=== PATIENT | female | born 1960 | race Caucasian/White ===

== ENCOUNTER 2016-10-25 10:52 | Observation (INO) | payer OTHER ==
[~2016-10-25] VITALS: Ht 154.9 cm; Wt 103.1 kg
[~2016-10-25 10:52] MED LIST: ATEN50TA8 PO; CMD5 PO; FRS/40 PO; SIMV40TA2 PO; TRAZ50TA35 PO; VENL150T33 PO; VENL75CA73 PO
[2016-10-25] MEDS ORDERED: SODIUM CHLORIDE 0.9% 500ML 500 ML IV STA (11:16)
--- NOTE | 2016-10-25 11:22 | EMERGENCY ROOM VISIT NOTE ---
History Report prepared by Tani: Helga Garcia Under the Supervision of: Dr. Walter Gilliland D.O. First contact with patient: 11:08 Chief Complaint: CHEST PAIN Stated Complaint: CHEST PAIN History of Present Illness The patient is a 55 year old female who presents to the Emergency Room with complaints of resolved chest pain that began four hours ago. She currently rates her discomfort as a 1/10 in severity. The patient states that around 0715 she woke up with chest heaviness and pressure. She states that she tried lying in bed for 15-20 minutes, but states that the pressure persisted. The patient states that she got up and did her normal morning routine, but the pain persisted and then began to worsen. She states that she started noticing the pain in her jaw. The patient additionally associates shortness of breath and dizziness. She reports a history of a cardiac ablation, but denies any cardiac catheterization. The patient denies any increased strenuous activity. She states that she received nitroglycerin en-route to the emergency department which alleviated her pain, but notes that she developed a headache. The patient states that she took 324 mg of aspirin prior to arrival and additionally was given 50 mcg of Fentanyl. The patient reports a history of atrial fibrillation. Source of History: patient Onset: four hours ago Position: chest Symptom Intensity: 1/10 Quality: pressure, other (heaviness) Timing: resolved Modifying Factors (Relieving): other (nitroglycerin) Associated Symptoms: + SOB Note: Associated Symptoms: dizziness Review of Systems See HPI for pertinent positives & negatives. A total of 10 systems reviewed and were otherwise negative. Past Medical & Surgical Medical Problems: (1) Atrial fibrillation (2) Chest pain (3) Chronic anticoagulation (4) Depression (5) DM type 2 (diabetes mellitus, type 2) (6) Dysmetabolic syndrome X (7) Hyperlipidemia (8) Obesity, morbid, BMI 40.0-49.9 (9) Osteoarthritis (10) Restless legs syndrome (RLS) (11) TIA (transient ischemic attack) (12) Tobacco abuse Surgical Problems: (1) H/O colonoscopy with polypectomy (2) History of hysterectomy (3) S/p ablation of SVT (4) S/P total knee arthroplasty Social History Smoking Status: Former Smoker Current/Historical Medications Scheduled Atenolol (Tenormin), 50 MG PO DAILY Bupropion Hcl (Bupropion Hcl Er), 150 MG PO BID Cholecalciferol (Vitamin D3), 1,000 INTER.UNIT PO DAILY Digoxin (Digoxin), 0.125 MG PO QAM Metformin Hcl (Glucophage), 500 MG PO BIDM Simvastatin (Zocor), 40 MG PO HS Warfarin Sod (Coumadin), 5 MG PO DAILY UD Warfarin Sod (Jantoven), 2.5 MG PO 2XWK Scheduled PRN Furosemide (Lasix), 40 MG PO DAILY PRN for FLUID ACCUMULATION Allergies Coded Allergies: Cephalexin (Verified Allergy, Unknown, "CAN'T REMEMBER WHAT HAPPENED" ( RASH PER PATRICIA H&P), 10/25/16) RASH AND POSSIBLE LIP SWELLING Physical Exam Vital Signs Date Time Temp Pulse Resp B/P (MAP) Pulse Ox O2 Delivery O2 Flow Rate FiO2 10/25/16 11:38 75 20 115/63 94 Room Air 10/25/16 11:08 71 10/25/16 10:55 96 Room Air 10/25/16 10:55 36.7 68 20 115/72 97 Room Air 10/25/16 10:55 96 Room Air Physical Exam GENERAL: Patient is awake, alert, mildly anxious appearing, but comfortable. EYES: The conjunctivae are clear. The pupils are round and reactive. EARS, NOSE, MOUTH AND THROAT: The nose is without any evidence of any deformity. Mucous membranes are moist tongue is midline NECK: The neck is nontender and supple. RESPIRATORY: Normal respiratory effort is noted there is no evidence of wheezing rhonchi or rales CARDIOVASCULAR: Irregular rhythm noted to auscultation, but no definite murmur. GASTROINTESTINAL: The abdomen is soft. Bowel sounds are present in all quadrants. Abdomen is nontender MUSCULOSKELETAL/EXTREMITIES: There is no evidence of gross deformity full range of motion is noted in the hips and shoulders SKIN: There is no obvious evidence of any rash. There are no petechiae, pallor or cyanosis noted. NEUROLOGIC: Patient is awake alert and oriented x3. Medical Decision & Procedures ER Provider Diagnostic Interpretation: X-ray results as stated below per interpretation by me and the radiologist. CHEST ONE VIEW PORTABLE CLINICAL HISTORY: CHEST PAIN dyspnea COMPARISON STUDY: No previous studies for comparison. FINDINGS: The bones soft tissues and hemidiaphragms are normal. The cardiomediastinal silhouette is normal. The lungs are clear. The pulmonary vasculature is normal. IMPRESSION: Negative chest. Electronically signed by: Bull Vides M.D. 10/25/2016 11:37 AM Dictated Date/Time: 10/25/2016 11:37 AM Laboratory Results 10/25/16 11:15 Red Blood Count 4.76, Mean Corpuscular Volume 89.7, Mean Corpuscular Hemoglobin 28.2, Mean Corpuscular Hemoglobin Concent 31.4, Mean Platelet Volume 9.7, Neutrophils (%) (Auto) 75.9, Lymphocytes (%) (Auto) 16.9, Monocytes (%) (Auto) 5.5, Eosinophils (%) (Auto) 0.8, Basophils (%) (Auto) 0.5, Neutrophils # (Auto) 8.39, Lymphocytes # (Auto) 1.87, Monocytes # (Auto) 0.61, Eosinophils # (Auto) 0.09, Basophils # (Auto) 0.05 10/25/16 11:15 Test 10/25/16 11:15 White Blood Count 11.05 K/uL (4.8-10.8) Red Blood Count 4.76 M/uL (4.2-5.4) Hemoglobin 13.4 g/dL (12.0-16.0) Hematocrit 42.7 % (37-47) Mean Corpuscular Volume 89.7 fL (80-100) Mean Corpuscular Hemoglobin 28.2 pg (25-34) Mean Corpuscular Hemoglobin Concent 31.4 g/dl (32-36) Platelet Count 252 K/uL (130-400) Mean Platelet Volume 9.7 fL (7.4-10.4) Neutrophils (%) (Auto) 75.9 % Lymphocytes (%) (Auto) 16.9 % Monocytes (%) (Auto) 5.5 % Eosinophils (%) (Auto) 0.8 % Basophils (%) (Auto) 0.5 % Neutrophils # (Auto) 8.39 K/uL (1.4-6.5) Lymphocytes # (Auto) 1.87 K/uL (1.2-3.4) Monocytes # (Auto) 0.61 K/uL (0.11-0.59) Eosinophils # (Auto) 0.09 K/uL (0-0.5) Basophils # (Auto) 0.05 K/uL (0-0.2) RDW Standard Deviation 49.8 fL (36.4-46.3) RDW Coefficient of Variation 15.4 % (11.5-14.5) Immature Granulocyte % (Auto) 0.4 % Immature Granulocyte # (Auto) 0.04 K/uL (0.00-0.02) Prothrombin Time 20.2 SECONDS (9.0-12.0) Prothromb Time International Ratio 1.8 (0.9-1.1) Activated Partial Thromboplast Time 35.2 SECONDS (21.0-31.0) Partial Thromboplastin Ratio 1.4 Anion Gap 12.0 mmol/L (3-11) Est Creatinine Clear Calc Drug Dose 101.0 ml/min Estimated GFR () 112.8 Estimated GFR (Non- 97.3 BUN/Creatinine Ratio 11.6 (10-20) Calcium Level 8.8 mg/dl (8.5-10.1) Total Bilirubin 0.4 mg/dl (0.2-1) Direct Bilirubin 0.1 mg/dl (0-0.2) Aspartate Amino Transf (AST/SGOT) 35 U/L (15-37) Alanine Aminotransferase (ALT/SGPT) 45 U/L (12-78) Alkaline Phosphatase 66 U/L (45-117) Total Creatine Kinase 60 U/L (26-192) Creatine Kinase MB < 0.5 ng/ml (0.5-3.6) Creatine Kinase MB Ratio (0-3.0) Troponin I < 0.015 ng/ml (0-0.045) Total Protein 7.0 gm/dl (6.4-8.2) Albumin 3.0 gm/dl (3.4-5.0) Lipase 248 U/L (73-393) Digoxin Level 0.8 ng/ml (0.8-2.0) Hepatitis C Antibody Screen NEG (NEG) Laboratory results per my review. Medications Administered Medications (Trade) Dose Ordered Sig/Dean Route Start Time Stop Time Status Last Admin Dose Admin Sodium Chloride 500 ml @ 999 mls/hr Q31M STAT IV 10/25/16 11:16 10/25/16 11:46 DC 10/25/16 11:20 999 MLS/HR ECG Rate (beats per minute): 74 Rhythm: atrial fibrillation Findings: other (no PVCs, no acute ST segment abnormalities) Comparison ECG Date: 10/09/13 Change: EKG change: When compared to EKG done on 10/09/13, decreased rate is noted, but no other specific change. ED Course 1108: The patient was evaluated in room C7. A complete history and physical examination were performed. 1116: Ordered Sodium Chloride 500 ml @ 999 mls/hr IV. 1203: I reevaluated the patient and she is resting comfortably. I discussed the exam findings with her and I discussed the treatment plan. She verbalized complete understanding and agreement. She is going to be evaluated for further treatment. 1207: I discussed the patients case with Kathy Sheehan. He is going to evaluate the patient for further treatment. Medical Decision Differential diagnosis: Etiologies such as cardiac ischemia, aortic dissection, pulmonary embolism, pneumonia, pneumothorax, musculoskeletal, infections, pericarditis, myocarditis , esophageal rupture, gastrointestinal, as well as others were entertained. Medication Reconciliation: I attest that I have personally reviewed the patient' s current medications list. Blood pressure screening: Patient was found to have normal blood pressure on screening and does not require follow-up. Nursing notes reviewed. The patient is a 55-year-old female who presented to the emergency department for an evaluation of chest discomfort. The patient noticed a heaviness over her anterior chest this morning. The patient states that she called 911 and was given aspirin and nitroglycerin prior to arrival. She states that the symptoms resolved with the medication she was given prior to arrival. The patient does have a history of atrial fibrillation. I discussed the patient's laboratory and radiographic studies with her. I also discussed the limitations of the [facility] department workup for chest pain with her. Because of her comorbidities I discussed her case with the on-call [facility] hospitalist. They have agreed to evaluate the patient in emergency department for further management and disposition. Consults Time Called: 1202 Consulting Physician: Kathy Sheehan Returned Call: 1207 I discussed the patients case with Kathy Sheehan. He is going to evaluate the patient for further treatment. Impression Primary Impression: Precordial chest pain Scribe Attestation The scribe's documentation has been prepared under my direction and personally reviewed by me in its entirety. I confirm that the note above accurately reflects all work, treatment, procedures, and medical decision making performed by me. Departure Information Dispostion Being Evaluated By Hospitalist Referrals Wayne Manuel D.O. (PCP)
[2016-10-25] MEDS ORDERED: GLC/500 PO (11:23)
[2016-10-25] MEDS ORDERED: BUPR-267 PO (11:23)
[2016-10-25] MEDS ORDERED: LNX125 PO (11:23)
[2016-10-25] MEDS ORDERED: CHOL1000 PO (11:23)
[2016-10-25] MEDS ORDERED: WARF5TAB7 PO (11:25)
[2016-10-25 11:27] LABS: BASO % 0.5 %; BASO ABS # 0.05 K/uL (0-0.2); COMPLETE YES; EOS % 0.8 %; HEMATOCRIT 42.7 % (37-47); IG% 0.4 %; LYMPH % 16.9 %; LYMPH ABS # 1.87 K/uL (1.2-3.4); MEAN CELL VOLUME 89.7 fL (80-100); MEAN CORPUSCULAR HEMOGLOBIN 28.2 pg (25-34); MEAN CORPUSCULAR HGB CONC 31.4 g/dl (32-36); MEAN PLATELET VOLUME 9.7 fL (7.4-10.4); MONO % 5.5 %; NEUT % 75.9 %; PLATELET COUNT 252 K/uL (130-400); RED BLOOD COUNT 4.76 M/uL (4.2-5.4); WHITE BLOOD COUNT 11.05 K/uL (4.8-10.8)
[2016-10-25 11:35] LABS: INR 1.8 (0.9-1.1); PARTIAL THROMBOPLASTIN RATIO 1.4; PROTHROMBIN TIME (PATIENT) 20.2 SECONDS (9.0-12.0)
--- NOTE | 2016-10-25 11:38 | DIAGNOSTIC IMAGING REPORT ---
CHEST ONE VIEW PORTABLE CLINICAL HISTORY: CHEST PAIN dyspnea COMPARISON STUDY: No previous studies for comparison. FINDINGS: The bones soft tissues and hemidiaphragms are normal. The cardiomediastinal silhouette is normal. The lungs are clear. The pulmonary vasculature is normal. IMPRESSION: Negative chest. Electronically signed by: Bull Vides M.D. 10/25/2016 11:37 AM Dictated Date/Time: 10/25/2016 11:37 AM
[2016-10-25 11:48] LABS: ALT/SGPT 45 U/L (12-78); BLOOD UREA NITROGEN 8 mg/dl (7-18); BUN/CREATININE RATIO 11.6 (10-20); CALCIUM 8.8 mg/dl (8.5-10.1); CARBON DIOXIDE 24 mmol/L (21-32); CHLORIDE 105 mmol/L (98-107); CREATININE 0.69 mg/dl (0.60-1.20); GLUCOSE 124 mg/dl (70-99)
[2016-10-25 11:49] LABS: ALKALINE PHOSPHATASE 66 U/L (45-117); AST/SGOT 35 U/L (15-37)
[2016-10-25 11:53] LABS: POTASSIUM 4.3 mmol/L (3.5-5.1); SODIUM 141 mmol/L (136-145)
[2016-10-25] MEDS ORDERED: IV FLUIDS COMPLETED PRN (12:45)
[2016-10-25 12:50] VITALS: O2SAT 97; Ht 154.9 cm; Wt 103.1 kg
[2016-10-25] MEDS ORDERED: NITROGLYCERIN 0.4 MG SL PER TAB CHARGE SL PRN (13:00)
[2016-10-25] MEDS ORDERED: GLUCOSE 40% GEL 15 GM TUBE PO PRN (13:00)
[2016-10-25] MEDS ORDERED: DEXTROSE 50% 50 ML SYR IV PRN (13:00)
[2016-10-25] MEDS ORDERED: GLUCAGON FOR INJ 1 MG VIAL SQ PRN (13:00)
[2016-10-25] MEDS ORDERED: ACETAMINOPHEN 325 MG TAB PO PRN (13:00)
[2016-10-25] MEDS ORDERED: GLUCOSE 10 TABS/TUBE PO PRN (13:00)
[2016-10-25] MEDS ORDERED: ONDANSETRON INJ 2 MG/ML 2 ML VIAL IV PRN (13:00)
--- NOTE | 2016-10-25 13:35 | History and Physical ---
History & Physical Date & Time of Service: Oct 25, 2016 at 13:04 Chief Complaint: Chest Pain Primary Care Physician: Wayne Manuel D.O. History of Present Illness Source: patient, spouse, clinic records, hospital records This is a 55 year old female with PMH of chronic atrial fibrillation on anticoagulation, DM type 2, hyperlipidemia, tobacco abuse, obesity, and other problems listed below who presents to the ED for chest pain. Pt follows with Dr. Manuel for primary care and Dr. Lim for cardiology. Patient states she awoke with chest pain at 7:15 this morning described as pressure and "someone sitting on her chest" in substernal area with radiation to her jaw bilaterally. When she got up and ambulated the pain worsened and she became dyspneic with exertion. Patient called 911 and was instructed to take 4 baby aspirin. En route to ER patient was treated with 2 nitro which relieved the pain but did develop headache. She also received Fentanyl en route. She is currently chest pain free. She states for past one year, since moving into a new home, has noticed HUFF climbing 11 stairs in the home. Has chronic dry cough. Has been stressed with babysitting her grandchildren over past few days. She denies diaphoresis, dizziness, palpitations, N/V, acid reflux, change in bowel or bladder habits, calf pain, edema, abnormal bleeding. No heavy lifting or trauma. No recent stress test. Last TTE in 12/2013 showed EF 54% and mild-mod mitral regurgitation. Past Medical/Surgical History Medical Problems: (1) Atrial fibrillation Status: Chronic (2) Chronic anticoagulation Status: Chronic (3) Depression Status: Chronic (4) DM type 2 (diabetes mellitus, type 2) Status: Chronic (5) Dysmetabolic syndrome X Status: Chronic (6) Hyperlipidemia Status: Chronic (7) Obesity, morbid, BMI 40.0-49.9 Status: Chronic (8) Osteoarthritis Status: Chronic (9) Restless legs syndrome (RLS) Status: Chronic (10) TIA (transient ischemic attack) Status: Chronic (11) Tobacco abuse Status: Chronic Surgical Problems: (1) H/O colonoscopy with polypectomy Status: Chronic (2) History of hysterectomy Status: Chronic (3) S/p ablation of SVT Permanent Comment: 11/08/2011; Dr. Arnold; [facility] [place] Status: Chronic (4) S/P total knee arthroplasty Permanent Comment: bilateral Status: Chronic Family History FH: CAD (coronary artery disease) FATHER ( of [place] age 52) Social History Smoking Status: Current Every Day Smoker (cut down to 1/3 pack per day. prior 1 ppd for 30 years. ) Alcohol Use: none Drug Use: none Marital Status: Housing status: lives with significant other Immunizations History of Influenza Vaccine: Yes History of Tetanus Vaccine?: Yes History of Pneumococcal: No History of Hepatitis B Vaccine: No Multi-Drug Resistant Organisms History of MDRO: No Allergies Coded Allergies: Cephalexin (Verified Allergy, Unknown, "CAN'T REMEMBER WHAT HAPPENED" ( RASH PER PATRICIA H&P), 10/25/16) RASH AND POSSIBLE LIP SWELLING Home Medications Scheduled Atenolol (Tenormin), 50 MG PO DAILY Bupropion Hcl (Bupropion Hcl Er), 150 MG PO BID Cholecalciferol (Vitamin D3), 1,000 INTER.UNIT PO DAILY Digoxin (Digoxin), 0.125 MG PO QAM Metformin Hcl (Glucophage), 500 MG PO BIDM Simvastatin (Zocor), 40 MG PO HS Warfarin Sod (Coumadin), 5 MG PO DAILY UD Warfarin Sod (Jantoven), 2.5 MG PO 2XWK Scheduled PRN Furosemide (Lasix), 40 MG PO DAILY PRN for FLUID ACCUMULATION Review of Systems Ten systems reviewed and negative except as noted in HPI. Physical Exam Vital Signs Date Time Temp Pulse Resp B/P (MAP) Pulse Ox O2 Delivery O2 Flow Rate FiO2 10/25/16 12:41 74 20 104/66 97 Room Air 10/25/16 11:38 75 20 115/63 94 Room Air 10/25/16 11:08 71 10/25/16 10:55 96 Room Air 10/25/16 10:55 36.7 68 20 115/72 97 Room Air 10/25/16 10:55 96 Room Air General Appearance: no apparent distress, + obese, + pertinent finding (alert cooperative 55 year old female, lying in bed, no distress, at bedside) Head: normocephalic, atraumatic Eyes: normal inspection, PERRL, sclerae normal ENT: hearing grossly normal, pharynx normal Neck: supple, no JVD, trachea midline Respiratory/Chest: chest non-tender, lungs clear, normal breath sounds, no respiratory distress, no accessory muscle use Cardiovascular: no murmur, + irregularly irregular (rate 60s) Abdomen/GI: normal bowel sounds, non tender, soft Extremities/Musculoskelatal: no calf tenderness, normal capillary refill, no pedal edema, + pertinent finding (healed scars from bilateral knee arthroplasties) Neurologic/Psych: alert, normal mood/affect, oriented x 3, + pertinent finding (no focal deficit on gross examination) Skin: normal color, warm/dry, no rash (no rash on the chest) Diagnostics Laboratory Results Results Past 24 Hours Test 10/25/16 11:15 Range/Units White Blood Count 11.05 4.8-10.8 K/uL Red Blood Count 4.76 4.2-5.4 M/uL Hemoglobin 13.4 12.0-16.0 g/dL Hematocrit 42.7 37-47 % Mean Corpuscular Volume 89.7 80-100 fL Mean Corpuscular Hemoglobin 28.2 25-34 pg Mean Corpuscular Hemoglobin Concent 31.4 32-36 g/dl Platelet Count 252 130-400 K/uL Mean Platelet Volume 9.7 7.4-10.4 fL Neutrophils (%) (Auto) 75.9 % Lymphocytes (%) (Auto) 16.9 % Monocytes (%) (Auto) 5.5 % Eosinophils (%) (Auto) 0.8 % Basophils (%) (Auto) 0.5 % Neutrophils # (Auto) 8.39 1.4-6.5 K/uL Lymphocytes # (Auto) 1.87 1.2-3.4 K/uL Monocytes # (Auto) 0.61 0.11-0.59 K/uL Eosinophils # (Auto) 0.09 0-0.5 K/uL Basophils # (Auto) 0.05 0-0.2 K/uL RDW Standard Deviation 49.8 36.4-46.3 fL RDW Coefficient of Variation 15.4 11.5-14.5 % Immature Granulocyte % (Auto) 0.4 % Immature Granulocyte # (Auto) 0.04 0.00-0.02 K/uL Prothrombin Time 20.2 9.0-12.0 SECONDS Prothromb Time International Ratio 1.8 0.9-1.1 Activated Partial Thromboplast Time 35.2 21.0-31.0 SECONDS Partial Thromboplastin Ratio 1.4 Sodium Level 141 136-145 mmol/L Potassium Level 4.3 3.5-5.1 mmol/L Chloride Level 105 98-107 mmol/L Carbon Dioxide Level 24 21-32 mmol/L Anion Gap 12.0 3-11 mmol/L Blood Urea Nitrogen 8 7-18 mg/dl Creatinine 0.69 0.60-1.20 mg/dl Est Creatinine Clear Calc Drug Dose 101.0 ml/min Estimated GFR () 112.8 Estimated GFR (Non- 97.3 BUN/Creatinine Ratio 11.6 10-20 Random Glucose 124 70-99 mg/dl Calcium Level 8.8 8.5-10.1 mg/dl Total Bilirubin 0.4 0.2-1 mg/dl Direct Bilirubin 0.1 0-0.2 mg/dl Aspartate Amino Transf (AST/SGOT) 35 15-37 U/L Alanine Aminotransferase (ALT/SGPT) 45 12-78 U/L Alkaline Phosphatase 66 45-117 U/L Total Creatine Kinase 60 26-192 U/L Creatine Kinase MB < 0.5 0.5-3.6 ng/ml Creatine Kinase MB Ratio 0-3.0 Troponin I < 0.015 0-0.045 ng/ml Total Protein 7.0 6.4-8.2 gm/dl Albumin 3.0 3.4-5.0 gm/dl Lipase 248 73-393 U/L Digoxin Level 0.8 0.8-2.0 ng/ml Diagnostic Radiology CHEST ONE VIEW PORTABLE CLINICAL HISTORY: CHEST PAIN dyspnea COMPARISON STUDY: No previous studies for comparison. FINDINGS: The bones soft tissues and hemidiaphragms are normal. The cardiomediastinal silhouette is normal. The lungs are clear. The pulmonary vasculature is normal. IMPRESSION: Negative chest. EKG atrial fibrillation vs. flutter, rate 74 bpm, no ST or T wave abnormality Impression Assessment and Plan CHEST PAIN R/o ACS; risk factors include DM, dyslipidemia, tobacco abuse, obesity, + family history History suspicious for angina; resolved with nitro en route Last echo 12/2013- EF 54%, mild-moderate mitral regurgitation Initial troponin negative EKG- Afib vs. flutter, rate 74, no ST or T wave abnormality CXR- unremarkable Trend serial cardiac enzymes Check echo Repeat EKG in am Took 4 baby aspirin IN HOUSE COUNSEL; add daily baby aspirin; continue beta gloria and statin Check fasting lipid panel in am Likely needs stress test- states she can do treadmill Consult cardiology ATRIAL FIBRILLATION Rate is controlled Continue atenolol Digoxin level OK- continue digoxin On Coumadin; INR = 1.8 Continue Coumadin and monitor INR DM TYPE 2 Hold metformin during hospitalization Insulin sliding scale coverage Check A1c in am DYSLIPIDEMIA Continue simvastatin Check fasting lipid panel ANXIETY/ DEPRESSION Continue Wellbutrin DVT PROPHYLAXIS On Coumadin FULL CODE DISPOSITION Observation to telemetry Follows with Dr. Manuel for primary care Patient seen in collaboration with Dr. Bal. Please see his addendum. Pt will be followed by Dr. Perez tomorrow morning. Attending Addendum: The patient was seen and examined Woke up with crushing chest pain and pressure -the kind she never felt before Required S/L Nitro No more pain but has Headache O/E Hemodynamically stable Chest-clear to ausucltate bilaterally Heart-Irregular Abdomen-benign Extremities-no edema [employer] DIRECT[employer] Labs and Imaging studies were reviewed H/O AF woke up with Crushing CP R/O ACS-Stress test and cardiology evaluation. Agree with the assessment and plan. Dr Roberto Bal VTE Prophylaxis VTE Risk Assessment Done? Y/N: Yes Risk Level: Moderate Given or contraindicated: Warfarin (Coumadin)
[2016-10-25 14:09] VITALS: O2SAT 95
[2016-10-25 14:46] VITALS: BP 126/77; PULSE 80; TEMP 37; O2SAT 96
[2016-10-25] MEDS ORDERED: WARFARIN SOD 5 MG TAB PO SCH (16:00)
--- NOTE | 2016-10-25 17:23 | CARDIOLOGY CONSULTATION ---
DATE OF CONSULTATION: 10/25/2016 REFERRING: Mariam Nava. PRIMARY CARE PHYSICIAN: Dr. Franco. PRIMARY ELECTRIC ORGAN ASSEMBLER AND CHECKER: Dr. Lim. INDICATIONS: Chest pain. HISTORY OF PRESENT ILLNESS: The patient is a 55-year-old female whose cardiac history is notable for past atrial flutter status post prior flutter ablation, relapsed with chronic atrial fibrillation on rate control and anticoagulation x2-3 years. Underlying medical problems include obstructive sleep apnea with poor tolerance of sleep mask, intermittent tobacco use, hyperlipidemia and type 2 diabetes mellitus. She carries a familial risk factor of heart disease, premature coronary disease in father. The patient presents now notes earlier this morning having developed severe hard, heavy chest pressure sensation radiating to her left jaw. Symptoms began approximately 7:15 a.m. and intermittently worsened, especially with increased activity, and motion. She noted becoming more dyspneic with exertion, ultimately summoned paramedics after taking 4 baby aspirin. Symptoms were treated and relieved with nitroglycerin in the ambulance as well as 1 dose of fentanyl. On arrival to the hospital, patient was pain free and initial enzymes were negative for infarct. An EKG revealed no ST segment abnormalities with chronic atrial fibrillation. She has been admitted to the hospital and is referred now for further evaluation. She notes no prior history of myocardial infarction, angina or congestive heart failure. Does carry a history of past TIA and is on chronic anticoagulation for such. As described, the patient has a history of chronic atrial fibrillation after prior remote ablation of atrial flutter. She notes no recent fevers, chills or productive cough. Notes no melena, hematochezia or bleeding difficulties. Is chronically anticoagulated, though INR is slightly subtherapeutic today. She did take her Coumadin this morning. She notes no rash or worsening arthritic complaint, though has chronic knee discomfort secondary to bilateral knee replacements. Weight has been stable, but obese. She notes having poor sleep habits and frequent awakening at night as well as nocturia. She notes no recent injuries or falls. REVIEW OF SYSTEMS: Otherwise negative. ALLERGIES: KEFLEX. MEDICATIONS PRIOR TO HOSPITALIZATION: Atenolol 50 mg p.o. daily, bupropion 150 mg twice per day, cholecalciferol 1000 units every day, digoxin 0.125 mg daily, furosemide 40 mg daily p.r.n. edema, metformin 500 mg b.i.d., Zocor 40 mg at bedtime, warfarin 5 mg Monday, Monday, , Monday and Monday and 2.5 mg Monday and Monday. FAMILY HISTORY: Notable for heart disease in father who had a myocardial infarction and at age 52 with coronary disease developing in his 30s. SOCIAL HISTORY: The patient resides in [place]. She is an occasional tobacco user per her description and is attempting to quit. Uses rare alcoholic beverages. No significant [id number] medications. She has had a significant increase in emotional stressors and "just fell apart and blew up" a day prior to her hospitalization. PHYSICAL EXAMINATION: VITAL SIGNS: Heart rate is 70, blood pressure is 126/77. HEENT: Normocephalic, atraumatic. NECK: Thick. There is no distinct jugular venous distention. There are no carotid bruits. Carotid pulses 2/4 without delay. LUNGS: Clear to auscultation with mildly diminished breath sounds. CARDIOVASCULAR: Irregularly irregular. There is no S3 gallop. ABDOMEN: Soft, obese, nontender. There is no hepatosplenomegaly. CHEST: Reveals minimal tenderness in the right and left supraclavicular areas. EXTREMITIES: Without cyanosis or clubbing. There is no peripheral edema. There are intact distal pulses. There is excellent right radial and ulnar pulses. There is well healed surgical incisions over both knees. There is no edema. NEUROLOGIC: The patient is alert and answering questions appropriately. LABORATORY STUDIES: Sodium is 141, potassium is 4.3, chloride is 105, bicarbonate is 24, BUN is 8, creatinine 0.7, glucose is 124. AST and ALT are normal. Initial troponin was less than 0.015. CK and MB fractions were normal. Digoxin level 0.87. White cell count was mildly elevated at 11.0, hemoglobin is 13.4, hematocrit is 42.7, platelet count is 252,000. INR as noted was 1.8. Chest x-ray reveals no infiltrate or edema. Normal cardiac silhouette size. EKG reveals atrial fibrillation with a rate of [address] segment changes. No acute ST segment abnormalities or Q-waves present. IMPRESSION: A 55-year-old female with cardiac risk factors of familial history, tobacco use, diabetes mellitus, hyperlipidemia who presents now with sudden onset of heavy chest pressure pain this morning lasting greater than 1-2 hours in duration. Initial enzymes and EKGs do not reflect acute injury, though symptoms are exceedingly concerning. Discussed findings in detail with the patient. Will continue current medications as ordered. The patient is to report any recurrence of symptoms or complaints. Will hold warfarin and review echocardiogram depending on clinical progression and laboratory studies as well as review echo. Will discern regarding proceeding with stress testing versus diagnostic cardiac catheterization with low threshold for coronary angiography given severity of symptoms and description. The patient does understand recommendations, will report any new symptoms or complaints. She will be kept n.p.o. after midnight except for meds. Metformin has already been held, warfarin will be arranged to be held, though patient did take dose this morning.
[2016-10-25] MEDS: INSULIN ASPART 100 UNITS/ML 3 ML PEN SC SCH ×2 (17:38→20:49)
[2016-10-25 18:13] LABS: CKMB/CK RATIO 2.1 (0-3.0)
[2016-10-25 19:34] VITALS: BP 109/77; PULSE 73; TEMP 37.2; O2SAT 97
[2016-10-25] MEDS: SIMVASTATIN 40 MG TAB PO SCH (20:52)
[2016-10-25] MEDS: BuPROPion SR 150 MG TABCR PO SCH (20:52)
[2016-10-26] VITALS (8 sets, daily range): BP systolic 109–137; BP diastolic 52–86; PULSE 71–99; TEMP 36.7–37.6; O2SAT 92–97
[2016-10-26 07:57] LABS: INR 1.9 (0.9-1.1); PROTHROMBIN TIME (PATIENT) 20.7 SECONDS (9.0-12.0)
[2016-10-26 08:17] LABS: CHOLESTEROL/HDL RATIO 4.8
[2016-10-26] MEDS: CHOLECALCIFEROL 1000 INTER.UNIT TAB PO SCH (08:51)
[2016-10-26] MEDS: ASPIRIN 81 MG ECTAB PO SCH (08:52)
[2016-10-26] MEDS: INSULIN ASPART 100 UNITS/ML 3 ML PEN SC SCH ×4 (08:52→20:45)
[2016-10-26] MEDS: BuPROPion SR 150 MG TABCR PO SCH ×2 (08:52→20:42)
[2016-10-26 09:42] LABS: ESTIMATED AVERAGE GLUCOSE 143 mg/dl; HA1C FLAG Normal (Normal)
--- NOTE | 2016-10-26 11:31 | CARDIOLOGY PROGRESS NOTE ---
DATE: 10/26/2016 DATE: 10/26/2016. The patient seen and examined. Chart, medications, telemetry reviewed. SUBJECTIVE: The patient this morning has no further chest discomfort. Notes no pleuritic discomfort. Notes no dizziness or lightheadedness. OBJECTIVE: VITAL SIGNS: Heart rate is 80-100, blood pressure is 118/74, O2 saturation is 95% on room air. Telemetry reveals atrial fibrillation with no tachy or bradyarrhythmias. HEAD, EYES, EARS, NOSE, AND THROAT EXAMINATION: Normocephalic, atraumatic. NECK: Thin. There is no jugular venous distention. No carotid bruits. LUNGS: Clear to auscultation. CARDIOVASCULAR: Irregularly irregular. There is no S3 gallop. ABDOMEN: Soft, nontender. EXTREMITIES: Without cyanosis or clubbing. There is no peripheral edema. There are intact distal pulses. LABORATORY DATA: EKG reveals atrial fibrillation at a rate of 98, nonspecific ST segment changes. No acute abnormalities or changes from prior days study. Troponin since admission have been less than 0.015 on serial testing x3. Cholesterol was 184, LDL 108, HDL 38. IMPRESSION: A 55-year-old female without history of ischemic heart disease with prior history of chronic atrial fibrillation, presented with concerning symptoms of chest pressure pain with exertion at low level workloads. Despite complaints EKGs and enzymes have been negative. INR remains mildly elevated to 1.9. RECOMMENDATIONS: Will plan on referring for stress echocardiography today. Discussed this in detail with the patient if any abnormalities on resting echocardiography or with stress would likely proceed to diagnostic cardiac catheterization. If the study is significantly negative, we will consider adjustment in medical therapies and careful outpatient followup. CONNIE
[2016-10-26] MEDS ORDERED: PERFLUTREN LIPID MICROSPHERE (DEFINITY) IV ONE (11:46)
[2016-10-26] MEDS ORDERED: SODIUM CHLORIDE 0.9% 1000ML 1,000 ML IV SCH (12:15)
[2016-10-26] MEDS ORDERED: DC ALL ANTICOAGULANTS ONE (12:15)
--- NOTE | 2016-10-26 12:47 | CARDIOLOGY PROGRESS NOTE ---
DATE: 10/26/2016 DATE: 10/26/2016. The patient is seen at time of stress testing underwent stress echocardiography exercised for 3 minutes and 15 seconds but became markedly dyspneic at low level workloads and study was stopped at a heart rate of 113 due to dyspnea and fatigue. There is no overt ischemia by study with resting LV function preserved though study was concerning regarding symptoms once again exacerbated with activity. Plan will be to resume diet currently, make NPO after midnight tonight, anticipate diagnostic cardiac catheterization in a.m.
--- NOTE | 2016-10-26 12:56 | EXERCISE STRESS ECHO ---
*NOTICE TO RECEIVING DEMOCRAT AGENCY This information is strictly Confidential and protected under [place] law. [place] law prohibits you from making any further disclosure of this information unless further disclosure is expressly permitted by the written consent of the person to whom it pertains or is authorized by law. A general authorization for the release of medical or other information is not sufficient for this purpose. Hospital accepts no responsibility if the information is made available to any other person, INCLUDING THE PATIENT. Interpretation Summary * Name: NASREEN AGUAYO Study Date: 10/26/2016 10:54 AM BP: 119/84 mmHg * Patient Location: [facility]\S\N286\S\2 HR: 80 * : 1960 (M/d/yyyy) Gender: Female Height: 61 in * Age: 55 yrs Ethnicity: [place] Weight: 222 lb * Ordering Physician: Nuris Saldaña * Referring Physician: NURIS SALDAÑA MD * Performed By: Helga Stubbs RDCS * * Reason For Study: CHEST PAIN * BSA: 2.0 m2 * Exercise capacity is below average. * Suboptimal stress test due to inadequate maximum heart rate. * -- Conclusions -- * Left ventricular systolic function is normal. * Ejection Fraction = 50-55%. Procedure Details * A contrast injection of Definity was performed to improve assessment of LV function. * Contrast was injected into an intravenous site in the left arm. * One vial of Definity ultrasound contrast was diluted in normal saline to a total volume of 10 ml. A total of '4' ml of solution was administered during imaging. * Lot # [id number] of Definity utilized for procedure. * Expiration date NOV 22. * The attending nurse who injected the contrast agent was RUI BARBA RN. Left Ventricle * The left ventricle is normal in size. * There is mild concentric left ventricular hypertrophy. * Ejection Fraction = 50-55%. * Left ventricular systolic function is normal. * No regional wall motion abnormalities noted. * The left ventricular ejection fraction increases normally with stress. The left ventricular end-systolic cavity size reduces post-stress (normal response). The left ventricular wall motion with stress is normal. Atria * The left atrium is moderately dilated. Mitral Valve * There is mild mitral annular calcification. * There is trace mitral regurgitation. Tricuspid Valve * The tricuspid valve anatomy is normal. * There is trace tricuspid regurgitation. * Doppler findings do not suggest pulmonary hypertension. Pulmonic Valve * The pulmonic valve is not well visualized. Pericardium * There is no pericardial effusion. Stress Parameters * Baseline EKG: Atrial fibrillation with nonspecific ST changes * There was no new ST segment depression. * The stress portion of this study was personally supervised by the undersigned interpreting physician. * Rest heart rate was '80' BPM. * Rest blood pressure was '119/84' * Maximum heart rate achieved was 118 bpm. * Maximum heart rate was 71 % of maximum age-predicted heart rate. * Maximum blood pressure was '140/66' * Total exercise time was '3:15' * Maximum exercise MET level achieved was '4.9' METS * Maximum treadmill speed was '2.5' miles per hour. * Maximum treadmill elevation was '12'% grade. * Exercise was terminated due to 'FATIGUE' MMode 2D Measurements and Calculations IVSd 1.0 cm IVSs 1.4 cm LVIDd 4.4 cm LVIDs 3.2 cm LVPWd 1.3 cm LVPWs 1.3 cm IVS/LVPW 0.79 FS 26.3 % EDV(Teich) 87.5 ml ESV(Teich) 42.2 ml EF(Teich) 51.8 % EDV(cubed) 85.0 ml ESV(cubed) 34.0 ml EF(cubed) 60.0 % % IVS thick 38.8 % % LVPW thick 2.9 % LV mass(C)d 181.8 grams LV mass(C)dI 92.1 grams/m\S\2 LV mass(C)s 151.3 grams LV mass(C)sI 76.6 grams/m\S\2 SV(Teich) 45.3 ml SI(Teich) 22.9 ml/m\S\2 SV(cubed) 51.0 ml SI(cubed) 25.8 ml/m\S\2 Ao root diam 2.4 cm Ao root area 4.6 cm\S\2 LA dimension 3.9 cm LA/Ao 1.6 LVAd ap4 25.8 cm\S\2 LVLd ap4 7.0 cm EDV(MOD-sp4) 77.8 ml EDV(sp4-el) 80.6 ml LVAs ap4 16.0 cm\S\2 LVLs ap4 5.9 cm ESV(MOD-sp4) 37.0 ml ESV(sp4-el) 36.6 ml EF(MOD-sp4) 52.5 % EF(sp4-el) 54.7 % SV(MOD-sp4) 40.8 ml SI(MOD-sp4) 20.7 ml/m\S\2 SV(sp4-el) 44.1 ml SI(sp4-el) 22.3 ml/m\S\2 Doppler Measurements and Calculations MV E max aranza 129.2 cm/sec MV dec time 0.22 sec Ao V2 max 117.3 cm/sec Ao max PG 5.5 mmHg Ao max PG (full) 2.8 mmHg LV V1 max PG 2.7 mmHg LV V1 max 82.0 cm/sec
[2016-10-26] MEDS: DIGOXIN 0.125 MG TAB PO SCH (15:34)
--- NOTE | 2016-10-26 18:15 | Progress Note ---
Subjective Date of Service: Oct 26, 2016. Subjective Pt evaluation today including: conversation w/ patient, physical exam, lab review, review of studies, review of inpatient medication list Saw/examined the patient in room 286 She's doing okay today Stress test performed earlier today, but was not an accurate study No other issues currently. Problem List Medical Problems: (1) Precordial chest pain Status: Acute Review of Systems Constitutional: No fever, No chills, No weakness Respiratory: No cough, No sputum, No shortness of breath Cardiac: No chest pain (resolved), No edema, No palpitations Abdomen: No pain, No nausea, No vomiting, No diarrhea Heme: No abnormal bleeding/bruising Medications Current Inpatient Medications Medications (Trade) Dose Ordered Sig/Dean Route Start Time Stop Time Status Last Admin Dose Admin Miscellaneous (Iv Fluids Completed) 1 ea PRN PRN N/A 10/25/16 12:45 10/25/17 12:44 Acetaminophen (Tylenol Tab) 650 mg Q4H PRN PO 10/25/16 13:00 11/24/16 12:59 10/25/16 14:52 650 MG Ondansetron HCl (Zofran Inj) 4 mg Q6H PRN IV 10/25/16 13:00 11/24/16 12:59 Nitroglycerin (Nitrostat Tab) 0.4 mg UD PRN SL 10/25/16 13:00 11/24/16 12:59 Aspirin (Ecotrin Tab) 81 mg QAM PO 10/26/16 09:00 11/25/16 08:59 10/26/16 08:52 81 MG Insulin Aspart (novoLOG ASPART) SLIDING SCALE If C... ACHS SC 10/25/16 16:00 11/24/16 15:59 10/26/16 17:09 4 UNITS Glucose (Glucose 40% Gel) 15-30 GRAMS 15 GRAMS... UD PRN PO 10/25/16 13:00 11/24/16 12:59 Glucose (Glucose Chew Tab) 4-8 Tablets 4 Tabl... UD PRN PO 10/25/16 13:00 11/24/16 12:59 Dextrose (Dextrose 50% 50ML Syringe) 25-50ML OF 50% DW IV FOR... UD PRN IV 10/25/16 13:00 11/24/16 12:59 Glucagon (Glucagon Inj) 1 mg UD PRN SQ 10/25/16 13:00 11/24/16 12:59 Atenolol (Tenormin Tab) 50 mg DAILY PO 10/26/16 09:00 11/25/16 08:59 10/26/16 08:51 50 MG Bupropion HCl (Wellbutrin-Sr Tab) 150 mg BID PO 10/25/16 21:00 11/24/16 20:59 10/26/16 08:52 150 MG Cholecalciferol (Vitamin D Tab) 1,000 inter.unit DAILY PO 10/26/16 09:00 11/25/16 08:59 10/26/16 08:51 1,000 INTER.UNIT Digoxin (Lanoxin Tab) 0.125 mg DAILY@1600 PO 10/26/16 16:00 11/25/16 15:59 10/26/16 15:34 0.125 MG Simvastatin (Zocor Tab) 40 mg HS PO 10/25/16 21:00 11/24/16 20:59 10/25/16 20:52 40 MG Warfarin Sodium (Coumadin Tab) 5 mg SuTuWeThSa@1600 PO 10/25/16 16:00 11/24/16 15:59 Future Hold Warfarin Sodium (Coumadin Tab) 2.5 mg MoFr@1600 PO 10/28/16 16:00 11/27/16 15:59 Future Hold Sodium Chloride 1,000 ml @ 100 mls/hr Q10H IV 10/26/16 12:15 11/25/16 12:14 Objective Vital Signs Date Time Temp Pulse Resp B/P (MAP) Pulse Ox O2 Delivery O2 Flow Rate FiO2 10/26/16 16:00 Room Air 10/26/16 15:34 70 10/26/16 15:33 71 119/81 (94) 10/26/16 15:06 36.7 78 18 137/74 (95) 97 Room Air 10/26/16 12:13 36.9 93 20 109/78 (88) 95 Room Air 10/26/16 12:13 Room Air 10/26/16 07:36 Room Air 10/26/16 07:17 36.7 99 18 118/74 (89) 95 Room Air 10/26/16 04:04 Room Air 10/26/16 04:00 37.4 89 20 128/81 (97) 92 Room Air 10/26/16 00:29 37.6 93 20 115/52 (73) 96 Room Air 10/26/16 00:21 Room Air 10/25/16 20:00 Room Air 10/25/16 19:34 37.2 73 20 109/77 (88) 97 Room Air Physical Exam General Appearance: no apparent distress, + obese Respiratory/Chest: lungs clear, normal breath sounds, no respiratory distress, no accessory muscle use Cardiovascular: regular rate, rhythm, no edema, no murmur Abdomen: normal bowel sounds, non tender, soft Extremities: normal inspection, no pedal edema Neurologic/Psychiatric: no motor/sensory deficits, alert, normal mood/affect Skin: normal color Laboratory Results Last 24 Hours Test 10/25/16 20:45 10/25/16 23:10 10/26/16 07:15 10/26/16 07:27 Bedside Glucose 114 mg/dl 137 mg/dl Total Creatine Kinase 47 U/L Creatine Kinase MB < 0.5 ng/ml Creatine Kinase MB Ratio Troponin I < 0.015 ng/ml Prothrombin Time 20.7 SECONDS Prothromb Time International Ratio 1.9 Estimated Average Glucose 143 mg/dl Hemoglobin A1c 6.6 % Triglycerides Level 190 mg/dl Cholesterol Level 184 mg/dl HDL Cholesterol 38 mg/dl LDL Cholesterol, Calculated 108 mg/dl VLDL Cholesterol, Calculated 38 mg/dl Cholesterol/HDL Ratio 4.8 Test 10/26/16 12:03 10/26/16 16:31 Bedside Glucose 138 mg/dl 131 mg/dl Assessment and Plan This is a 55 year old female with a PMH of HLD, DM2, A. Fib, depression/anxiety presents with chest pain Chest Pain r/o ACS 10/26 patient had a stress echo today, not an accurate or diagnostic exam plan is for diagnostic cardiac catheterization on 10/27 risk factors including hyperlipidemia, DM2, possible undiagnosed HTN (elevated BP while inpatient), family history cardiac enzymes negative x3, no ST elevation on EKG DM2 Ha1c = 6.6% continue oral medications on discharge A. Fib hold Coumadin continue Digoxin HLD continue statin DVT ppx Coumadin FULL CODE
[2016-10-26] MEDS: SIMVASTATIN 40 MG TAB PO SCH (20:42)
[2016-10-27] VITALS (8 sets, daily range): BP systolic 111–124; BP diastolic 60–87; PULSE 75–102; TEMP 36.5–36.8; O2SAT 92–96
[2016-10-27] MEDS: SODIUM CHLORIDE 0.9% 1000ML 1,000 ML IV SCH ×2 (00:08→11:46)
[2016-10-27 06:16] LABS: INR 1.4 (0.9-1.1); PROTHROMBIN TIME (PATIENT) 15.4 SECONDS (9.0-12.0)
[2016-10-27] MEDS: INSULIN ASPART 100 UNITS/ML 3 ML PEN SC SCH ×3 (08:02→17:24)
[2016-10-27] MEDS ORDERED: NiCARDipine HCL INJ 2.5 MG/ML 10 ML AMP ONE (08:54)
[2016-10-27] MEDS ORDERED: HEPARIN SOD (PORCINE) 1000 UNIT/ML 10 ML VIAL ONE (08:54)
[2016-10-27] MEDS ORDERED: FENTANYL CITRATE INJ 50 MCG/1 ML 2 ML VIAL ONE (08:55)
[2016-10-27] MEDS ORDERED: MIDAZOLAM HCL 1 MG/ML 2ML VIAL ONE (08:55)
[2016-10-27] MEDS ORDERED: NITROGLYCERIN/D5W 100MCG/ML 20ML SYR ONE (08:56)
[2016-10-27] MEDS ORDERED: SODIUM CHLORIDE 0.9% 1000ML 250 ML IV PRN (10:12)
[2016-10-27] MEDS ORDERED: ACETAMINOPHEN 325 MG TAB PO PRN (10:15)
[2016-10-27] MEDS ORDERED: SODIUM CHLORIDE 0.9% 1000ML 1,000 ML IV SCH (10:15)
--- NOTE | 2016-10-27 10:18 | Procedure Note ---
Pre-Mod Sedation Assessment General Date of Moderate Sedation: Oct 27, 2016. Vital Signs: Vital Signs Past 12 Hours Date Time Temp Pulse Resp B/P (MAP) Pulse Ox O2 Delivery O2 Flow Rate FiO2 10/27/16 10:00 86 16 124/106 (112) 96 Room Air 10/27/16 08:57 36.5 102 18 124/87 96 Room Air 10/27/16 08:00 Room Air 10/27/16 07:21 36.5 102 18 124/87 (99) 96 Room Air 10/27/16 04:00 Room Air 10/27/16 03:35 36.8 88 18 123/83 (96) 95 Room Air 10/27/16 00:22 Room Air 10/26/16 23:48 36.8 83 20 114/70 (85) 95 Room Air Review Cardiovascular: + irregularly irregular Lungs: lungs clear Airway Class: II Pre-Sedation Airway Assessment Oral Cavity: Dentures Short Thick Neck: No Hx of Sleep Apnea: No Smoking Status: Current Every Day Smoker Mallampati Classification: Class II ASA Classification: Class III Procedure Planning Contraindications-for Mod Sed: None Notes The planned sedation has been discussed with the patient and consent obtained. I have identified the patient, determined the appropriateness of sedation and have assessed the patient immediately prior to the procedure. All medicine(s) and interventions are by my order.
--- NOTE | 2016-10-27 10:28 | [facility] Post Operative Brief Note ---
Preliminary Procedure Note Procedure Date Oct 27, 2016. Pre-Procedure Diagnosis Positive Stress Test, Cardiothoracic Symptom AUC Score 7 Post-Procedure Diagnosis Mild CAD Procedure(s) Performed Coronary Angiography, Left Heart Cath Drafter Automotive Design Dr. Pro Saldaña Mammalogist(s) Mahendra Dean Estimated Blood Loss <15cc Medication(s) Nicardipine (250mcg intraarterial after sheath insertion and prior to sheath removal ), Nitroglycerin (200mcg intraarterial prior to sheath removal), Lidocaine 1% (local infiltration) Preliminary Findings Right dominant coronary anatomy Small caliber coronary vessels without obstruction RCA 40% ostial narrowing c/w catheter induced spasm Recommendations Medical therapy and/or Counseling Specimens None Fluids (cc crystalloids) 76 Anesthesia Start 0927 Versed 1mg IV, Fentanyl 12.5mcg IV Stop 1000 Disposition Flame Cutting Machine Operator Helper Holding/Recovery
--- NOTE | 2016-10-27 11:38 | CARDIAC CATH REPORT ---
DATE OF PROCEDURE: 10/27/2016. REFERRING: Dr. Saldaña. PRIMARY CARE PHYSICIAN: Dr. Manuel. PRIMARY LADLE REPAIRMAN: Dr. Lim. INDICATIONS: Exertional chest pressure, low level exertion tolerance. PROCEDURE: Coronary angiography. BRIEF CARDIAC HISTORY: The patient is a 55-year-old female with chronic atrial fibrillation who presented to the Emergency Room with symptoms strongly reminiscent of crescendo angina. The patient developing hard heavy sensation of pressure pain in her chest radiating to her jaw with worsening complaints with ambulation. She presented to the Emergency Room though her initial enzymes and EKGs were not remarkable for ischemia. There is no heart failure. Symptoms are class 3-4 in description. Stress echocardiography performed demonstrated poor exercise tolerance, the patient demonstrating marked dyspnea at less than 3 minutes exertion and patient's study stops premature due to complaints of suboptimal heart rate. She is referred now for diagnostic cardiac catheterization. ACCESS: Right radial artery. CATHETERS: A 6-Tongan short glide sheath, 5-Tongan brachial 3.5. CONTRAST: Nonionic 84 mL of Visipaque. IV SALINE: 76 mL. SEDATION: Start time 0727, end 1000. MEDICATIONS: 1 mg IV Versed and fentanyl 12.5 mg IV. SUPERVISING NURSE: Jakub Anthony. MEDICATIONS: Access site received local infiltration with 1% lidocaine. After radial sheath was inserted patient received intra-arterial injection of 250 mcg of nicardipine. Prior to sheath removal the patient received an additional 250 mcg of nicardipine and 200 mcg of nitroglycerin. COMPLICATIONS: None. PROCEDURAL NOTES: The patient had mild radial artery spasm limiting catheter manipulation. Near the end of completion of the case mild spasm was induced at the ostium of the right coronary artery on engagement. RADIATION EXPOSURE: 6.1 minutes fluoroscopy, 1444 milligrays, DAP score 8708. RESULTS: CORONARY ANGIOGRAPHY: Note right dominant coronary anatomy is present while coronaries are very modest in caliber. LEFT MAIN: The left main is very short and trifurcates to give rise to left anterior descending, a modest sized ramus intermedius and left circumflex. There is no disease in the left main. LEFT ANTERIOR DESCENDING: Left anterior descending is a short type 2 vessel within a thin apical segment. It gives rise to 2 modest diagonal branches in its proximal and mid portion. There is no obstructive disease. LEFT CIRCUMFLEX: Left circumflex is large and gives rise to a very large bifurcating obtuse marginal and along the AV groove a large posterolateral branch and a large atrial branch. RAMUS INTERMEDIUS: This is a moderately large vessel reaching to the apex and is free of disease. RIGHT CORONARY ARTERY: The right coronary artery is dominant in distribution. It is modest in caliber. It gives rise to 2 right ventricular branches in its mid portion. At the AV groove a long posterior descending artery reaching to the apex and along the AV groove 2 posterior ventricular branches. Within the right coronary artery, there is as noted a catheter-induced spasm 40% on engagement at its ostium. The distal vessel is thin in caliber but without obstructive disease with mild luminal irregularities throughout. LEFT VENTRICULAR ANGIOGRAPHY: LV angiography not performed. HEMODYNAMICS: Initial aortic root pressure was 125/80 with a mean of 99. At completion of the case, aortic root pressure was 144/85 with a mean of 111. FINAL IMPRESSIONS: 1. Right dominant coronary anatomy. 2. Modest caliber vessels with mild luminal irregularities and no obstruction. 3. A 40% taper of the ostium of the right coronary artery reflecting catheter-induced coronary spasm.
[2016-10-27] MEDS: BuPROPion SR 150 MG TABCR PO SCH (11:55)
[2016-10-27] MEDS: ASPIRIN 81 MG ECTAB PO SCH (11:55)
[2016-10-27] MEDS: CHOLECALCIFEROL 1000 INTER.UNIT TAB PO SCH (11:55)
[2016-10-27] MEDS ORDERED: NURSING VERBAL MED ORDER ONE (14:45)
--- NOTE | 2016-10-27 15:18 | CARDIOLOGY PROGRESS NOTE ---
DATE: 10/27/2016 DATE: 10/27/2016. The patient seen and examined. Chart, medications, telemetry reviewed. SUBJECTIVE: The patient is seen post diagnostic cardiac catheterization, tolerated the procedure well other than minor right arm discomfort. Notes no chest pains or shortness of breath. Notes no dizziness or lightheadedness. Angiography demonstrated no obstructive coronary disease. OBJECTIVE: VITAL SIGNS: Heart rate 75, blood pressure is 123/60. NECK: Thin. There is no jugular venous distention. No carotid bruits. LUNGS: Clear to auscultation. CARDIOVASCULAR EXAMINATION: Irregularly irregular. There is no S3 gallop. ABDOMEN: Soft, nontender. EXTREMITIES: Without cyanosis or clubbing. There is no peripheral edema. LABORATORY DATA: Glucose is 140. Lipids on admission were notable for cholesterol 184, LDL of 108, HDL of 38, triglyceride level 190. Cardiac catheterization today demonstrates modest caliber coronaries with mild luminal irregularities and no obstruction. There is mild catheter-induced spasm of 40% ostial RCA. RECOMMENDATIONS: Will continue current medical therapies. Additional low dose calcium channel gloria to see if this aids in symptoms. If symptoms worsen or do not aid could consider discontinuing. Will continue digoxin and atenolol for heart rate control, anticoagulation with warfarin. Would consider switch from simvastatin to atorvastatin in the future. The patient should follow up with primary behavioral health technician Dr. Lim. Primary care physician Dr. Manuel.
[2016-10-27] MEDS ORDERED: WARFARIN SOD 5 MG TAB PO SCH (16:00)
--- NOTE | 2016-10-27 16:19 | Progress Note ---
Subjective Date of Service: Oct 27, 2016. Subjective Pt evaluation today including: conversation w/ patient, physical exam, lab review, review of studies, review of inpatient medication list Saw/examined the patient in room 244 She had a cardiac cath today; no issues to note after this no chest pain/shortness of breath/palpitations No other symptoms at this time Problem List Medical Problems: (1) Precordial chest pain Status: Acute Review of Systems Constitutional: No fever, No chills, No weakness Respiratory: No cough, No sputum, No shortness of breath Cardiac: No chest pain, No edema, No palpitations Abdomen: No pain, No nausea, No vomiting, No diarrhea Musculoskeletal: No joint pain Female : No dysuria, No urinary frequency Heme: No abnormal bleeding/bruising Medications Current Inpatient Medications Medications (Trade) Dose Ordered Sig/Dean Route Start Time Stop Time Status Last Admin Dose Admin Miscellaneous (Iv Fluids Completed) 1 ea PRN PRN N/A 10/25/16 12:45 10/25/17 12:44 Acetaminophen (Tylenol Tab) 650 mg Q4H PRN PO 10/25/16 13:00 11/24/16 12:59 10/25/16 14:52 650 MG Ondansetron HCl (Zofran Inj) 4 mg Q6H PRN IV 10/25/16 13:00 11/24/16 12:59 Nitroglycerin (Nitrostat Tab) 0.4 mg UD PRN SL 10/25/16 13:00 11/24/16 12:59 Aspirin (Ecotrin Tab) 81 mg QAM PO 10/26/16 09:00 11/25/16 08:59 10/27/16 11:55 81 MG Insulin Aspart (novoLOG ASPART) SLIDING SCALE If C... ACHS SC 10/25/16 16:00 11/24/16 15:59 10/27/16 13:36 3 UNITS Glucose (Glucose 40% Gel) 15-30 GRAMS 15 GRAMS... UD PRN PO 10/25/16 13:00 11/24/16 12:59 Glucose (Glucose Chew Tab) 4-8 Tablets 4 Tabl... UD PRN PO 10/25/16 13:00 11/24/16 12:59 Dextrose (Dextrose 50% 50ML Syringe) 25-50ML OF 50% DW IV FOR... UD PRN IV 10/25/16 13:00 11/24/16 12:59 Glucagon (Glucagon Inj) 1 mg UD PRN SQ 10/25/16 13:00 11/24/16 12:59 Atenolol (Tenormin Tab) 50 mg DAILY PO 10/26/16 09:00 11/25/16 08:59 10/27/16 11:55 50 MG Bupropion HCl (Wellbutrin-Sr Tab) 150 mg BID PO 10/25/16 21:00 11/24/16 20:59 10/27/16 11:55 150 MG Cholecalciferol (Vitamin D Tab) 1,000 inter.unit DAILY PO 10/26/16 09:00 11/25/16 08:59 10/27/16 11:55 1,000 INTER.UNIT Digoxin (Lanoxin Tab) 0.125 mg DAILY@1600 PO 10/26/16 16:00 11/25/16 15:59 10/26/16 15:34 0.125 MG Simvastatin (Zocor Tab) 40 mg HS PO 10/25/16 21:00 11/24/16 20:59 10/26/16 20:42 40 MG Warfarin Sodium (Coumadin Tab) 5 mg SuTuWeThSa@1600 PO 10/25/16 16:00 11/24/16 15:59 Future Hold Warfarin Sodium (Coumadin Tab) 2.5 mg MoFr@1600 PO 10/28/16 16:00 11/27/16 15:59 Future Hold Sodium Chloride 1,000 ml @ 100 mls/hr Q10H IV 10/27/16 00:00 11/26/16 00:00 10/27/16 00:08 100 MLS/HR Sodium Chloride 250 ml @ 999 mls/hr Q16M PRN IV 10/27/16 10:12 11/26/16 10:11 Amlodipine Besylate (Norvasc Tab) 2.5 mg QAM PO 10/28/16 09:00 11/27/16 08:59 Warfarin Sodium (Coumadin Tab) 5 mg TODAY@1600 PO 10/27/16 16:00 10/27/16 16:01 Objective Vital Signs Date Time Temp Pulse Resp B/P (MAP) Pulse Ox O2 Delivery O2 Flow Rate FiO2 10/27/16 14:49 36.7 76 18 114/63 (80) 96 Room Air 10/27/16 14:16 75 16 123/60 (81) 95 Room Air 10/27/16 13:00 77 16 111/68 (82) 95 Room Air 10/27/16 12:00 86 16 119/78 (92) 92 Room Air 10/27/16 12:00 Room Air 10/27/16 12:00 86 16 119/78 (92) 92 Room Air 10/27/16 10:30 88 16 120/88 (99) 96 Room Air 10/27/16 10:15 87 16 122/91 (101) 96 Room Air 10/27/16 10:00 86 16 124/106 (112) 96 Room Air 10/27/16 08:57 36.5 102 18 124/87 96 Room Air 10/27/16 08:00 Room Air 10/27/16 07:21 36.5 102 18 124/87 (99) 96 Room Air 10/27/16 04:00 Room Air 10/27/16 03:35 36.8 88 18 123/83 (96) 95 Room Air 10/27/16 00:22 Room Air 10/26/16 23:48 36.8 83 20 114/70 (85) 95 Room Air 10/26/16 20:18 36.8 87 18 120/86 (97) 97 Room Air 10/26/16 20:00 Room Air 10/26/16 16:00 Room Air Physical Exam General Appearance: no apparent distress Respiratory/Chest: chest non-tender, lungs clear, normal breath sounds, no respiratory distress, no accessory muscle use Cardiovascular: no edema, no gallop, no JVD, no murmur, + irregularly irregular Abdomen: normal bowel sounds, non tender, soft Extremities: non-tender, normal inspection, no pedal edema Neurologic/Psychiatric: no motor/sensory deficits, alert, normal mood/affect Skin: normal color Laboratory Results Last 24 Hours Test 10/26/16 16:31 10/26/16 20:38 10/27/16 05:41 10/27/16 07:38 Bedside Glucose 131 mg/dl 123 mg/dl 137 mg/dl Prothrombin Time 15.4 SECONDS Prothromb Time International Ratio 1.4 Test 10/27/16 11:50 Bedside Glucose 140 mg/dl Assessment and Plan This is a 55 year old female with a PMH of HLD, DM2, A. Fib, depression/anxiety presents with chest pain Chest Pain r/o ACS 10/27 cardiac cath performed - some spasms noted plan is to d/c home today with amlodipine 2.5mg continue current cardiac meds for atrial fibrillation 10/26 patient had a stress echo today, not an accurate or diagnostic exam plan is for diagnostic cardiac catheterization on 10/27 risk factors including hyperlipidemia, DM2, possible undiagnosed HTN (elevated BP while inpatient), family history cardiac enzymes negative x3, no ST elevation on EKG DM2 Ha1c = 6.6% continue oral medications on discharge A. Fib hold Coumadin continue Digoxin HLD continue statin DVT ppx Coumadin FULL CODE
[2016-10-27] MEDS ORDERED: ASPEC81 PO (16:23)
[2016-10-27] MEDS ORDERED: NRV5 PO (16:23)
--- NOTE | 2016-10-27 16:31 | Discharge Instructions ---
Discharge Instructions Date of Service Oct 27, 2016. Admission Reason for Admission: Chest Pain Discharge Discharge Diagnosis / Problem: Chest Pain, ACS ruled out Discharge Goals Goal(s): Decrease discomfort, Improve function, Diagnostic testing, Therapeutic intervention Activity Recommendations Activity Limitations: resume your previous activity . Instructions / Follow-Up Instructions / Follow-Up Please follow-up with Dr. Mulligan (covering for Dr. Manuel) on October 31 @ 9 :45AM Please follow-up with Dr. Lim of cardiology Current Hospital Diet Patient's current hospital diet: Diabetes Type 2 Diet, AHA Diet (Heart Healthy) Discharge Diet Recommended Diet: Diabetes Type 2 Diet Pending Studies Studies pending at discharge: no Laboratory Results Hemoglobin A1c Test 10/26/16 07:15 Range/Units Estimated Average Glucose 143 mg/dl Hemoglobin A1c 6.6 H 4.5-5.6 % Lipid Panel Test 10/26/16 07:15 Range/Units Triglycerides Level 190 H 0-150 mg/dl Cholesterol Level 184 0-200 mg/dl HDL Cholesterol 38 mg/dl Cholesterol/HDL Ratio 4.8 LDL Cholesterol, Calculated 108 mg/dl Medical Emergencies . Who to Call and When: Medical Emergencies: If at any time you feel your situation is an emergency, please call 911 immediately. . Non-Emergent Contact Non-Emergency issues call your: Primary Care Provider, Certified Home Health Aide . . "Provider Documentation" section prepared by Salvador Perez. . VTE Core Measure Inpt VTE Proph given/why not?: Warfarin (Coumadin)
--- NOTE | 2016-10-27 16:35 | Discharge Summary ---
Discharge Summary Date of Service Oct 27, 2016. Discharge Summary Admission Date: Oct 25, 2016 at 12:22 Discharge Date: Oct 27, 2016 Discharge Disposition: Home Principal Diagnosis: Chest Pain, ACS ruled out; possibly vasospasm Medication Reconciliation New Medications: Amlodipine Besylate (Amlodipine Besylate) 5 Mg Tab 2.5 MG PO QAM for 30 Days, #15 TAB Aspirin (Aspirin EC Low Dose) 81 Mg Ectab 81 MG PO QAM for 30 Days, #30 TABS Continued Medications: Atenolol (Tenormin) 50 Mg Tab 50 MG PO DAILY, TAB Bupropion Hcl (Bupropion Hcl Er) 150 Mg Tab 150 MG PO BID Cholecalciferol (Vitamin D3) 1,000 Unit Tab 1000 INTER.UNIT PO DAILY for 90 Days, TAB 3 Refills Digoxin (Digoxin) 0.125 Mg Tab 0.125 MG PO QAM Furosemide (Lasix) 40 Mg Tab 40 MG PO DAILY PRN for FLUID ACCUMULATION, TAB Metformin Hcl (Glucophage) 500 Mg Tab 500 MG PO BIDM, TAB Simvastatin (Zocor) 40 Mg Tab 40 MG PO HS, TAB Warfarin Sod (Coumadin) 5 Mg Tab 5 MG PO DAILY UD TAKE 5MG , MON, , MON, MONDAY Warfarin Sod (Jantoven) 5 Mg Tab 2.5 MG PO 2XWK, TAB TAKE 2.5MG MONDAY AND MONDAY. Admission Information HPI (per Admitting provider): This is a 55 year old female with PMH of chronic atrial fibrillation on anticoagulation, DM type 2, hyperlipidemia, tobacco abuse, obesity, and other problems listed below who presents to the ED for chest pain. Pt follows with Dr. Manuel for primary care and Dr. Lim for cardiology. Patient states she awoke with chest pain at 7:15 this morning described as pressure and "someone sitting on her chest" in substernal area with radiation to her jaw bilaterally. When she got up and ambulated the pain worsened and she became dyspneic with exertion. Patient called 911 and was instructed to take 4 baby aspirin. En route to ER patient was treated with 2 nitro which relieved the pain but did develop headache. She also received Fentanyl en route. She is currently chest pain free. She states for past one year, since moving into a new home, has noticed HUFF climbing 11 stairs in the home. Has chronic dry cough. Has been stressed with babysitting her grandchildren over past few days. She denies diaphoresis, dizziness, palpitations, N/V, acid reflux, change in bowel or bladder habits, calf pain, edema, abnormal bleeding. No heavy lifting or trauma. No recent stress test. Last TTE in 12/2013 showed EF 54% and mild-mod mitral regurgitation. Physical Exam (per Admitting): General Appearance: no apparent distress, + obese, + pertinent finding ( alert cooperative 55 year old female, lying in bed, no distress, at bedside) Head: normocephalic, atraumatic Eyes: normal inspection, PERRL, sclerae normal ENT: hearing grossly normal, pharynx normal Neck: supple, no JVD, trachea midline Respiratory/Chest: chest non-tender, lungs clear, normal breath sounds, no respiratory distress, no accessory muscle use Cardiovascular: no murmur, + irregularly irregular (rate 60s) Abdomen/GI: normal bowel sounds, non tender, soft Extremities/Musculoskelatal: no calf tenderness, normal capillary refill, no pedal edema, + pertinent finding (healed scars from bilateral knee arthroplasties) Neurologic/Psych: alert, normal mood/affect, oriented x 3, + pertinent finding (no focal deficit on gross examination) Skin: normal color, warm/dry, no rash (no rash on the chest) Hospital Course This is a 55 year old female with a PMH of HLD, DM2, A. Fib, depression/anxiety presents with chest pain Chest Pain r/o ACS 10/27 cardiac cath performed - some spasms noted plan is to d/c home today with amlodipine 2.5mg continue current cardiac meds for atrial fibrillation 10/26 patient had a stress echo today, not an accurate or diagnostic exam plan is for diagnostic cardiac catheterization on 10/27 risk factors including hyperlipidemia, DM2, possible undiagnosed HTN (elevated BP while inpatient), family history cardiac enzymes negative x3, no ST elevation on EKG DM2 Ha1c = 6.6% continue oral medications on discharge A. Fib hold Coumadin continue Digoxin HLD continue statin DVT ppx Coumadin FULL CODE Total time spent on discharge = 39 minutes This includes examination of the patient, discharge planning, medication reconciliation, and communication with other providers. Discharge Instructions Please follow-up with Dr. Mulligan (covering for Dr. Manuel) on October 31 @ 9 :45AM Please follow-up with Dr. Lim of cardiology
[2016-10-27] MEDS: DIGOXIN 0.125 MG TAB PO SCH (17:20)
[2016-10-28] MEDS ORDERED: AMLODIPINE BESYLATE 5 MG TAB PO SCH (09:00)
[2016-10-28] MEDS ORDERED: WARFARIN SOD 2.5 MG TAB PO SCH (16:00)
== END 2016-10-27 17:36 | disposition home or self-care (01) ==
LOC: EDBD 10:52 → C.EDC 10:54 → C.MED 12:22 → ENRESERV 12:56 → C.MSICU 10-27 09:45 → INTOOBSV 10-27 10:10 → OBSVTOIN 10-27 10:10 → C.2T 10-27 10:54
PROVIDERS: ADMIT Internal Medicine; ATTEND Family Medicine
DX: R07.9 Chest pain, unspecified (principal); I48.2 Chronic atrial fibrillation; E11.9 Type 2 diabetes mellitus without complications; E78.5 Hyperlipidemia, unspecified; F32.9 Major depressive disorder, single episode, unspecified; E66.01 Morbid (severe) obesity due to excess calories; M19.90 Unspecified osteoarthritis, unspecified site; Z79.82 Long term (current) use of aspirin; Z79.01 Long term (current) use of anticoagulants; Z98.890 Other specified postprocedural states; Z90.710 Acquired absence of both cervix and uterus; Z96.659 Presence of unspecified artificial knee joint; Z86.73 Personal history of transient ischemic attack (TIA), and cerebral infarction without residual deficits; Z87.891 Personal history of nicotine dependence